=== PATIENT | female | born 1965 | race Caucasian/White ===

== ENCOUNTER 2019-01-13 09:19 | Emergency (ER) | payer BC ==
[2019-01-13] MEDS ORDERED: Sodium Chloride 0.9% 10 ML Syringe FLUSH PRN (09:26)
[2019-01-13] MEDS ORDERED: Sodium Chloride 0.9% 1,000 ML IV ONE (09:28)
[2019-01-13 09:29] VITALS: BP 166/99
[2019-01-13] MEDS ORDERED: Ondansetron 4 MG/2 ML SDV IV ONE (09:34)
[2019-01-13 09:57] LABS: ANION GAP 16.2; CHLORIDE,CL 102 mmol/L (101-111); SODIUM,NA 135 mmol/L (135-145)
[2019-01-13] MEDS ORDERED: Ketorolac 30 MG/ML SDV IVPUSH ONE (09:57)
[2019-01-13] MEDS ORDERED: Nitrofurantoin Monohydrate/Macrocrystalline 100 MG Cap PO ONE (10:20)
--- NOTE | 2019-01-13 11:02 | EDM.PDOC ---
ED HPI GENERAL MEDICAL PROBLEM - General Chief Complaint: Abdominal Pain Stated Complaint: abd pain Time Seen by Provider: 01/13/19 09:35 Source of Information: Reports: Patient, RN, RN Notes Reviewed History Limitations: Reports: No Limitations - History of Present Illness INITIAL COMMENTS - FREE TEXT/NARRATIVE: Pt to ER with c/o pain to the LLQ, side, and left flank pain beginning yesterday , continuously getting worse through the night. Rates the pain 10/10. 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 Patient states she has had low grade fever, body aches for about a week, felt she had a viral illness. Admits to N/V, fever, chills. Denies diarrhea. Last BM was yesterday and normal for her. States has had a hysterectomy. Onset: Gradual Left Upper Abdomen Pain Score (Numeric/FACES): 10 - Related Data Allergies Allergy/AdvReac Type Severity Reaction Status Date / Time erythromycin base Allergy Unknown UKNOWN Verified 01/13/19 09:24 psyllium Allergy Unknown SHORTNESS Verified 01/13/19 09:24 OF BREATH/WHEEZING/CHEST TIGHTNESS simvastatin Allergy Unknown SWELLING Verified 01/13/19 09:24 OF LEGS Home Meds: Home Meds Aspirin [Amber Chewable] 81 mg PO DAILY 05/18/15 [History] Atenolol [Tenormin] 50 mg PO DAILY 05/18/15 [History] FLUoxetine HCl [Fluoxetine HCl] 20 mg PO DAILY 05/18/15 [History] Fosinopril [Monopril] 20 mg PO DAILY 05/18/15 [History] Hydrochlorothiazide 12.5 mg PO DAILY 05/18/15 [History] Cholecalciferol (Vitamin D3) [Vitamin D3] 2,000 unit PO DAILY 01/13/19 [History] Past Medical History HEENT History: Reports: None Cardiovascular History: Reports: Hypertension Respiratory History: Reports: None Genitourinary History: Reports: Renal Calculus [employer] History: Reports: Musculoskeletal History: Reports: None Neurological History: Reports: MS Psychiatric History: Reports: None Endocrine/Metabolic History: Reports: None Hematologic History: Reports: None Immunologic History: Reports: None Oncologic (Cancer) History: Reports: None Dermatologic History: Reports: None - Infectious Disease History Infectious Disease History: Reports: None - Past Surgical History Head Surgeries/Procedures: Reports: None Other GI Surgeries/Procedures: tumors removed from abdomen Female Surgical History: Reports: Hysterectomy Social & Family History - Family History Family Medical History: Noncontributory - Tobacco Use Smoking Status *Q: Never Smoker Second Hand Smoke Exposure: No - Caffeine Use Caffeine Use: Reports: Soda - Recreational Drug Use Recreational Drug Use: No ED ROS GENERAL - Review of Systems Review Of Systems: ROS reveals no pertinent complaints other than HPI. ED EXAM, RENAL/ - Physical Exam Exam: See Below Exam Limited By: No Limitations General Appearance: Alert, WD/WN, Moderate Distress Eye Exam: Bilateral Eye: EOMI, Normal Inspection Ears: Normal External Exam, Hearing Grossly Normal Nose: Normal Inspection Throat/Mouth: Normal Inspection, Normal Voice, No Airway Compromise Head: Atraumatic, Normocephalic Neck: Normal Inspection, Supple, Non-Tender, Full Range of Motion Respiratory/Chest: No Respiratory Distress, Lungs Clear, Normal Breath Sounds, No Accessory Muscle Use, Chest Non-Tender Cardiovascular: Normal Peripheral Pulses, Regular Rate, Rhythm, No Edema, No Gallop, No JVD, No Murmur, No Rub GI/Abdominal: Normal Bowel Sounds, Soft, No Organomegaly, No Distention, No Abnormal Bruit, No Mass, Tender (LLQ) (Female) Exam: Deferred Rectal (Female) Exam: Deferred Back Exam: Normal Inspection, Full Range of Motion, CVA Tenderness (L) Extremities: Normal Inspection, Normal Range of Motion, Non-Tender, Normal Capillary Refill, No Pedal Edema Neurological: Alert, Oriented, CN II-XII Intact, Normal Cognition, Normal Gait, Normal Reflexes, No Motor/Sensory Deficits Psychiatric: Normal Affect, Normal Mood Skin Exam: Warm, Dry, Intact, Normal Color, No Rash Lymphatic: No Adenopathy Course - Vital Signs Last Recorded V/S: Last Vital Signs Temp 97.8 F 01/13/19 09:28 Pulse 88 01/13/19 09:28 Resp 20 01/13/19 09:28 BP 166/99 H 01/13/19 09:28 Pulse Ox 96 01/13/19 09:28 - Orders/Labs/Meds Orders: Active Orders 24 hr Category Date Time Status Peripheral IV Care [RC] . DIRECTED Care 01/13/19 09:28 Active CULTURE URINE [RM] Stat Lab 01/13/19 09:34 Received Sodium Chloride 0.9% [Saline Flush] Med 01/13/19 09:26 Active 10 ml FLUSH ASDIRECTED PRN Peripheral IV Insertion Adult [OM.PC] Stat Oth 01/13/19 09:26 Ordered Medication Orders Sodium Chloride (Saline Flush) 10 ml FLUSH ASDIRECTED PRN PRN Reason: Keep Vein Open Last Admin: 01/13/19 09:40 Dose: 10 ml Labs: Laboratory Tests 01/13/19 01/13/19 01/13/19 Range/Units 09:29 09:29 09:34 WBC 6.9 (5.0-10.0) 10^3/uL RBC 4.95 (4.2-5.4) 10^6/uL Hgb 14.9 (12.0-16.0) g/dL Hct 43.9 (37.0-47.0) % MCV 88.7 (80-100) fL MCH 30.1 (27.0-34.0) pg MCHC 33.9 (33.0-35.0) g/dL Plt Count 162 (150-450) 10^3/uL Neut % (Auto) 44.1 (42.2-75.2) % Lymph % (Auto) 46.4 (20.5-50.1) % [place] % (Auto) 6.0 (2-8) % Eos % (Auto) 3.1 H (1.0-3.0) % Baso % (Auto) 0.4 (0.0-1.0) % Sodium 135 (135-145) mmol/L Potassium 3.2 L (3.6-5.0) mmol/L Chloride 102 (101-111) mmol/L Carbon Dioxide 20.0 L (21.0-31.0) mmol/L Anion Gap 16.2 BUN 11 (7-18) mg/dL Creatinine 0.7 (0.6-1.3) mg/dL Est Cr Clr Drug Dosing 80.26 mL/min Estimated GFR (MDRD) > 60 BUN/Creatinine Ratio 15.71 Glucose 186 H (74-105) mg/dL Calcium 8.7 (8.4-10.2) mg/dl Total Bilirubin 0.8 (0.2-1.0) mg/dL AST 76 H (10-42) IU/L ALT 91 H (10-60) IU/L Alkaline Phosphatase 106 (42-121) IU/L Total Protein 7.2 (6.7-8.2) g/dl Albumin 3.9 (3.2-5.5) g/dl Globulin 3.3 Albumin/Globulin Ratio 1.18 Urine Color Yellow (YELLOW) Urine Appearance Turbid (CLEAR) Urine pH 5.5 (5.0-9.0) Ur Specific [place] >= 1.030 (1.005-1.030) Urine Protein 100 H (NEGATIVE) Urine Glucose (UA) Negative (NEGATIVE) Urine Ketones Negative (NEGATIVE) Urine Occult Blood Large H (NEGATIVE) Urine Nitrite Positive H (NEGATIVE) Urine Bilirubin Negative (NEGATIVE) Urine Urobilinogen 0.2 (0.2-1.0) mg/dL Ur Leukocyte Esterase Large H (NEGATIVE) Urine RBC 50-75 H /HPF Urine WBC >100 H (0-5/HPF) /HPF Ur Epithelial Cells Moderate H (NOT SEEN) /HPF Amorphous Sediment Moderate H (NOT SEEN) /HPF Urine Bacteria Many H (0-FEW/HPF) /HPF Urine Mucus Few H (NOT SEEN) /LPF Meds: Medications Generic Name Dose Route Start Last Admin Trade Name Freq PRN Reason Stop Dose Admin Sodium Chloride 10 ml 01/13/19 09:26 01/13/19 09:40 Saline Flush FLUSH 10 ml ASDIRECTED PRN Administration Keep Vein Open Discontinued Medications Generic Name Dose Route Start Last Admin Trade Name Freq PRN Reason Stop Dose Admin Sodium Chloride 1,000 mls @ 999 mls/hr 01/13/19 09:28 01/13/19 09:40 Normal Saline IV 01/13/19 10:28 999 mls/hr .BOLUS ONE Administration Ketorolac Tromethamine 30 mg 01/13/19 09:57 01/13/19 10:02 Toradol IVPUSH 01/13/19 09:58 30 mg ONETIME ONE Administration Nitrofurantoin Macrocrystals 100 mg 01/13/19 10:20 01/13/19 10:27 Macrobid PO 01/13/19 10:21 100 mg ONETIME ONE Administration Ondansetron HCl 4 mg 01/13/19 09:34 01/13/19 09:40 Zofran IV 01/13/19 09:35 4 mg ONETIME ONE Administration - Radiology Interpretation Free Text/Narrative:: CT of Abdomen wo contrast: FINDINGS: Mediastinum: There is thickening of the distal esophagus wall possibly with a very tiny sliding hiatus hernia. Correlate for reflux or dyspepsia symptoms. ABDOMEN: Liver: Normal. No mass. Gallbladder and bile ducts: Normal. No calcified stones. No ductal dilation. Pancreas: Normal. No ductal dilation. Spleen: Spleen size is upper limits of normal. Adrenals: Normal. No mass. Kidneys and ureters: There is a 9 mm calculus within the left renal pelvis just proximal to the UPJ, with mild hydronephrosis. Stomach and bowel: Normal. No obstruction. No mucosal thickening. Appendix: Possibly post appendectomy. PELVIS: Bladder: There is no bladder calculus. Reproductive: Post hysterectomy. ABDOMEN and PELVIS: Intraperitoneal space: Normal. No free air. No significant fluid collection. Bones/joints: There is no acute osseous abnormality. Soft tissues: Unremarkable. Vasculature: There are numerous pelvic phleboliths. Lymph nodes: Normal. No enlarged lymph nodes. IMPRESSION: Benign millimeter calculus within the distal left renal pelvis is associated with mild hydronephrosis. Thank you for allowing us to participate in the care of your patient. Dictated and Authenticated by: Amaury Mayo MD 01/13/2019 10:28 AM Central Time ([place] & [place]) See rad report - Re-Assessments/Exams Free Text/Narrative Re-Assessment/Exam: 01/13/19 11:43 Discussed patient case with Dr. Leblanc who agreed to see the patient in the clinic in the morning with procedure to be on Monday. Departure - Departure Time of Disposition: 11:44 Disposition: Home, Self-Care 01 Condition: Fair Clinical Impression: Nephrolithiasis - Discharge Information *PRESCRIPTION DRUG MONITORING PROGRAM REVIEWED*: No *COPY OF PRESCRIPTION DRUG MONITORING REPORT IN PATIENT LADARIUS: No Instructions: Kidney Stones, [id number] Referrals: PCP,None [Primary Care Provider] - Forms: ED Department Discharge Additional Instructions: See Dr. Leblanc at [facility] at 8:30am in [place] Probable procedure on Monday morning Drink plenty of water RX: Ketorolac, Macrobid Return to the ER with any further problems - My Orders Last 24 Hours: My Active Orders 01/13/19 09:26 Sodium Chloride 0.9% [Saline Flush] 10 ml FLUSH ASDIRECTED PRN Peripheral IV Insertion Adult [OM.PC] Stat 01/13/19 09:28 Peripheral IV Care [RC] . DIRECTED 01/13/19 09:34 CULTURE URINE [RM] Stat - Assessment/Plan Last 24 Hours: My Active Orders 01/13/19 09:26 Sodium Chloride 0.9% [Saline Flush] 10 ml FLUSH ASDIRECTED PRN Peripheral IV Insertion Adult [OM.PC] Stat 01/13/19 09:28 Peripheral IV Care [RC] . DIRECTED 01/13/19 09:34 CULTURE URINE [RM] Stat
== END 2019-01-13 11:50 | disposition home or self-care (01) ==
LOC: DL.ED 09:19
DX: N13.2 Hydronephrosis with renal and ureteral calculous obstruction (principal); I10 Essential (primary) hypertension; Z88.1 Allergy status to other antibiotic agents; Z88.8 Allergy status to other drugs, medicaments and biological substances; Z79.82 Long term (current) use of aspirin; Z79.899 Other long term (current) drug therapy
CPT/HCPCS: 36415; 74176; 80053; 81001; 85025; 87086; 87088; 87186; 96361; 96374; 96375; 99284; A9270; J1885; J2405; J7030

== ENCOUNTER 2019-01-17 17:26 | Emergency (ER) | payer BC ==
[2019-01-17 18:27] LABS: ANION GAP 15.2; CHLORIDE,CL 98 mmol/L (101-111); SODIUM,NA 135 mmol/L (135-145)
[2019-01-17] MEDS ORDERED: Ketorolac 30 MG/ML SDV IVPUSH ONE (18:36)
--- NOTE | 2019-01-17 18:37 | EDM.PDOC ---
Scribed by Marlee Guerrero 01/17/19 1837 for Giacomo Frias PA <Giacomo Frias - Last Filed: 01/17/19 18:37> ED HPI GENERAL MEDICAL PROBLEM - General Chief Complaint: Flank Pain Stated Complaint: FEVER,BODY ACHES,VOMITTING Time Seen by Provider: 01/17/19 17:50 Source of Information: Reports: Patient, RN, RN Notes Reviewed History Limitations: Reports: No Limitations - History of Present Illness INITIAL COMMENTS - FREE TEXT/NARRATIVE: Patient is a 53-year-old female patient who reports to the ED with left upper quadrant and left flank pain. The patient reports increased pain since she had a stent placed for kidney stones. The patient was seen in the ED over the weekend with kidney stones. The patient reports she took a Hydrocodone about 1 hour before coming today. Onset: Gradual Duration: Getting Worse Location: Reports: Abdomen Quality: Reports: Ache Severity: Severe Improves with: Reports: None Worsens with: Reports: None Associated Symptoms: Reports: No Other Symptoms Left Flank Pain Score (Numeric/FACES): 5 - Related Data Allergies Allergy/AdvReac Type Severity Reaction Status Date / Time erythromycin base Allergy Unknown UK[place] Verified 01/17/19 17:54 psyllium Allergy Unknown SHORTNESS Verified 01/17/19 17:54 OF BREATH/WHEEZING/CHEST TIGHTNESS simvastatin Allergy Unknown SWELLING Verified 01/17/19 17:54 OF LEGS Home Meds: Home Meds Aspirin [Amber Chewable] 81 mg PO DAILY 05/18/15 [History] Atenolol [Tenormin] 50 mg PO DAILY 05/18/15 [History] FLUoxetine HCl [Fluoxetine HCl] 20 mg PO DAILY 05/18/15 [History] Fosinopril [Monopril] 20 mg PO DAILY 05/18/15 [History] Hydrochlorothiazide 12.5 mg PO DAILY 05/18/15 [History] Cholecalciferol (Vitamin D3) [Vitamin D3] 2,000 unit PO DAILY 01/13/19 [History] Past Medical History HEENT History: Reports: None Cardiovascular History: Reports: Hypertension Respiratory History: Reports: None Genitourinary History: Reports: Renal Calculus [employer] History: Reports: Musculoskeletal History: Reports: None Neurological History: Reports: MS Psychiatric History: Reports: None Endocrine/Metabolic History: Reports: None Hematologic History: Reports: None Immunologic History: Reports: None Oncologic (Cancer) History: Reports: None Dermatologic History: Reports: None - Infectious Disease History Infectious Disease History: Reports: None - Past Surgical History Head Surgeries/Procedures: Reports: None Other GI Surgeries/Procedures: tumors removed from abdomen Female Surgical History: Reports: Hysterectomy Social & Family History - Family History Family Medical History: Noncontributory - Tobacco Use Smoking Status *Q: Never Smoker Second Hand Smoke Exposure: No - Caffeine Use Caffeine Use: Reports: Soda - Recreational Drug Use Recreational Drug Use: No ED ROS GENERAL - Review of Systems Review Of Systems: ROS reveals no pertinent complaints other than HPI. ED EXAM, GI/ABD - Physical Exam Exam: See Below Exam Limited By: No Limitations General Appearance: Alert, WD/WN, No Apparent Distress Eyes: Bilateral: Normal Appearance Ears: Normal External Exam, Normal Canal, Hearing Grossly Normal, Normal TMs Nose: Normal Inspection, Normal Mucosa, No Blood Throat/Mouth: Normal Inspection, Normal Lips, Normal Teeth, Normal Gums, Normal Oropharynx, Normal Voice, No Airway Compromise Head: Atraumatic, Normocephalic Neck: Normal Inspection, Supple, Non-Tender, Full Range of Motion Respiratory/Chest: No Respiratory Distress, Lungs Clear, Normal Breath Sounds, No Accessory Muscle Use, Chest Non-Tender Cardiovascular: Normal Peripheral Pulses, Regular Rate, Rhythm, No Edema, No Gallop, No JVD, No Murmur, No Rub GI/Abdominal Exam: Other (left upper quadrant abdominal pain. Left flank pain. ) (Female) Exam: Deferred Rectal (Female) Exam: Deferred Back Exam: Normal Inspection, Full Range of Motion, NT Extremities: Normal Inspection, Normal Range of Motion, Non-Tender, Normal Capillary Refill, No Pedal Edema Neurological: Alert, Oriented, CN II-XII Intact, Normal Cognition, Normal Gait, Normal Reflexes, No Motor/Sensory Deficits Psychiatric: Normal Affect, Normal Mood Skin Exam: Warm, Dry, Intact, Normal Color, No Rash Lymphatic: No Adenopathy Course - Vital Signs Last Recorded V/S: Last Vital Signs Temp 36.6 C 01/17/19 17:32 Pulse 88 01/17/19 17:32 Resp 18 01/17/19 17:32 BP 125/76 01/17/19 17:32 Pulse Ox 96 05/23/19 17:32 - Orders/Labs/Meds Orders: Active Orders 24 hr Category Date Time Status CBC WITH AUTO DIFF [HEME] Stat Lab 01/17/19 17:52 Results CULTURE BLOOD [BC] Stat Lab 01/17/19 17:52 Received CULTURE URINE [RM] Stat Lab 01/17/19 17:57 Received MANUAL DIFFERENTIAL QA/NC [HEME] Stat Lab 01/17/19 17:52 Results Labs: Laboratory Tests 01/17/19 01/17/19 01/17/19 Range/Units 17:52 17:52 17:52 WBC 7.9 (5.0-10.0) 10^3/uL RBC 4.90 (4.2-5.4) 10^6/uL Hgb 14.7 (12.0-16.0) g/dL Hct 43.4 (37.0-47.0) % MCV 88.6 (80-100) fL MCH 30.0 (27.0-34.0) pg MCHC 33.9 (33.0-35.0) g/dL Plt Count 157 (150-450) 10^3/uL Neut % (Auto) 39.2 L (42.2-75.2) % Lymph % (Auto) 45.2 (20.5-50.1) % [place] % (Auto) 13.9 H (2-8) % Eos % (Auto) 1.3 (1.0-3.0) % Baso % (Auto) 0.4 (0.0-1.0) % Add Manual Diff Yes Sodium 135 (135-145) mmol/L Potassium 3.2 L (3.6-5.0) mmol/L Chloride 98 L (101-111) mmol/L Carbon Dioxide 25.0 (21.0-31.0) mmol/L Anion Gap 15.2 BUN 14 (7-18) mg/dL Creatinine 0.8 (0.6-1.3) mg/dL Est Cr Clr Drug Dosing 70.23 mL/min Estimated GFR (MDRD) > 60 BUN/Creatinine Ratio 17.50 Glucose 113 H (74-105) mg/dL Lactic Acid 1.9 (0.5-2.2) mmol/L Calcium 8.7 (8.4-10.2) mg/dl Total Bilirubin 1.0 (0.2-1.0) mg/dL AST 276 H (10-42) IU/L ALT 273 H (10-60) IU/L Alkaline Phosphatase 266 H (42-121) IU/L Total Protein 6.9 (6.7-8.2) g/dl Albumin 3.5 (3.2-5.5) g/dl Globulin 3.4 Albumin/Globulin Ratio 1.03 Urine Color (YELLOW) Urine Appearance (CLEAR) Urine pH (5.0-9.0) Ur Specific [place] (1.005-1.030) Urine Protein (NEGATIVE) Urine Glucose (UA) (NEGATIVE) Urine Ketones (NEGATIVE) Urine Occult Blood (NEGATIVE) Urine Nitrite (NEGATIVE) Urine Bilirubin (NEGATIVE) Urine Urobilinogen (0.2-1.0) mg/dL Ur Leukocyte Esterase (NEGATIVE) Urine RBC /HPF Urine WBC (0-5/HPF) /HPF Ur Epithelial Cells (NOT SEEN) /HPF Amorphous Sediment (NOT SEEN) /HPF Urine Bacteria (0-FEW/HPF) /HPF Urine Mucus (NOT SEEN) /LPF 01/17/19 Range/Units 17:57 WBC (5.0-10.0) 10^3/uL RBC (4.2-5.4) 10^6/uL Hgb (12.0-16.0) g/dL Hct (37.0-47.0) % MCV (80-100) fL MCH (27.0-34.0) pg MCHC (33.0-35.0) g/dL Plt Count (150-450) 10^3/uL Neut % (Auto) (42.2-75.2) % Lymph % (Auto) (20.5-50.1) % [place] % (Auto) (2-8) % Eos % (Auto) (1.0-3.0) % Baso % (Auto) (0.0-1.0) % Add Manual Diff Sodium (135-145) mmol/L Potassium (3.6-5.0) mmol/L Chloride (101-111) mmol/L Carbon Dioxide (21.0-31.0) mmol/L Anion Gap BUN (7-18) mg/dL Creatinine (0.6-1.3) mg/dL Est Cr Clr Drug Dosing mL/min Estimated GFR (MDRD) BUN/Creatinine Ratio Glucose (74-105) mg/dL Lactic Acid (0.5-2.2) mmol/L Calcium (8.4-10.2) mg/dl Total Bilirubin (0.2-1.0) mg/dL AST (10-42) IU/L ALT (10-60) IU/L Alkaline Phosphatase (42-121) IU/L Total Protein (6.7-8.2) g/dl Albumin (3.2-5.5) g/dl Globulin Albumin/Globulin Ratio Urine Color Red (YELLOW) Urine Appearance Turbid (CLEAR) Urine pH 6.0 (5.0-9.0) Ur Specific [place] 1.025 (1.005-1.030) Urine Protein >=300 H (NEGATIVE) Urine Glucose (UA) Negative (NEGATIVE) Urine Ketones Trace H (NEGATIVE) Urine Occult Blood Large H (NEGATIVE) Urine Nitrite Negative (NEGATIVE) Urine Bilirubin Moderate H (NEGATIVE) Urine Urobilinogen 1.0 (0.2-1.0) mg/dL Ur Leukocyte Esterase Small H (NEGATIVE) Urine RBC Packed H /HPF Urine WBC 50-75 H (0-5/HPF) /HPF Ur Epithelial Cells Moderate H (NOT SEEN) /HPF Amorphous Sediment Moderate H (NOT SEEN) /HPF Urine Bacteria Few (0-FEW/HPF) /HPF Urine Mucus Moderate H (NOT SEEN) /LPF Meds: Medications Discontinued Medications Generic Name Dose Route Start Last Admin Trade Name Freq PRN Reason Stop Dose Admin Ketorolac Tromethamine 30 mg 01/17/19 18:36 01/17/19 18:40 Toradol IVPUSH 01/17/19 18:37 30 mg ONETIME ONE Administration Ondansetron HCl 4 mg 01/17/19 18:59 01/17/19 19:04 Zofran IV 01/17/19 19:00 4 mg ONETIME ONE Administration Departure - Departure Disposition: Home, Self-Care 01 Clinical Impression: UTI, Urinary tract infectious disease - Discharge Information Instructions: Urinary Tract Infection, Adult, [id number] Forms: ED Department Discharge Additional Instructions: 1) stop macrobid 2) drink lots of liquids 3) follow up with clinic 4) recheck if there is any change or concern rx given; cipro 250mg bid x 5 days tramadol 50mg bid prn pain x 12 <Fermín Banuelos - Last Filed: 01/17/19 19:24> Course - Re-Assessments/Exams Free Text/Narrative Re-Assessment/Exam: 01/17/19 19:21 results discussed with pt who is feeling good presently. Departure - Departure Time of Disposition: 19:22 Condition: Good I have read and agree with the documentation that has been completed regarding this visit. By signing this record, I attest that the documentation was completed in my physical presence and is an accurate record of the encounter.
[2019-01-17] MEDS ORDERED: Ondansetron 4 MG/2 ML SDV IV ONE (18:59)
[2019-01-17 19:32] VITALS: BP 116/84; PULSE 67
== END 2019-01-17 19:30 | disposition home or self-care (01) ==
LOC: DL.ED 17:26
DX: N39.0 Urinary tract infection, site not specified (principal); I10 Essential (primary) hypertension; Z88.1 Allergy status to other antibiotic agents; Z88.8 Allergy status to other drugs, medicaments and biological substances; Z79.82 Long term (current) use of aspirin; Z79.899 Other long term (current) drug therapy; Z90.710 Acquired absence of both cervix and uterus
CPT/HCPCS: 36415; 74176; 80053; 81001; 83605; 85025; 87040; 87086; 87088; 87186; 96374; 96375; 99284; J1885; J2405; 99283